=== PATIENT | female | born 1935 | race Caucasian/White ===

== ENCOUNTER 2021-11-14 01:38 | Emergency (ER) | payer OTHER ==
[2021-11-14] MEDS ORDERED: dexAMETHasone 10 MG/ML VIAL ONE (02:58)
[2021-11-14] MEDS ORDERED: KETOROLAC 30 MG/ML INJ ONE (02:59)
[2021-11-14] MEDS ORDERED: MEPERIDINE HCL 25 MG/ML SYR ONE ×2 (02:59→03:55)
--- NOTE | 2021-11-14 04:09 | EDPHYS ---
Physician Documentation [facility] Name: Tami Whitehead Age: 86 yrs Sex: Female : 1935 Arrival Date: 11/14/2021 Time: 01:41 Bed 14 Private MD: ED Physician Moisés Lassiter HPI: 11/14 02:26 This 86 yrs old Female presents to ER via Wheelchair with complaints of Arm Pain. rn 02:26 The patient or guardian complains of pain, that is acute. The complaints affect the rn anterior aspect of right shoulder. Onset: The symptoms/episode began/occurred last night. Treatment prior to arrival includes: over the counter medications. Modifying factors: The symptoms are alleviated by remaining still, the symptoms are aggravated by movement. Associated signs and symptoms: Pertinent negatives: fever, swelling, warmth, weakness. Severity of symptoms: At their worst the symptoms were moderate, in the emergency department the symptoms are unchanged. The patient has experienced similar episodes in the past. The patient has not recently seen a physician. Pt reports right shoulder pain, has had it for 1 year, intermittent, never got this bad. No injury or fall. Reports pain with elevation of arm and rotation of arm. No weakness/numbness. Also with hx of gout.. Historical: - Allergies: 02:08 Morphine; lp1 - Home Meds: 02:08 levothyroxine oral [Active]; Spironolacton-Hydrochlorothiaz Oral [Active]; carvedilol lp1 oral [Active]; pantoprazole oral [Active]; Plavix Oral [Active]; torsemide oral [Active]; Lisinopril Oral [Active]; Allopurinol Oral [Active]; atorvastatin oral [Active]; amlodipine oral [Active]; Aspirin Oral [Active]; - PMHx: 02:08 Hypertensive disorder; Hypothyroidism; Gout; lp1 - PSHx: 02:08 Pacemaker; Heart stents; lp1 - Immunization history:: Adult Immunizations up to date, Client reports receiving the 2nd dose of the Covid vaccine. - Social history:: Smoking status: Patient denies any tobacco usage or history of. - Family history:: not pertinent. - Hospitalizations: : No recent hospitalization is reported. ROS: 02:26 Constitutional: Negative for fever, chills, and weight loss, Eyes: Negative for injury, rn pain, redness, and discharge, Neck: Negative for injury, pain, and swelling, Cardiovascular: Negative for chest pain, palpitations, and edema, Respiratory: Negative for shortness of breath, cough, wheezing, and pleuritic chest pain, Abdomen/GI: Negative for abdominal pain, nausea, vomiting, diarrhea, and constipation, Back: Negative for injury and pain, MS/Extremity: Negative for injury and deformity, Skin: Negative for injury, rash, and discoloration, Neuro: Negative for headache, weakness, numbness, tingling, and seizure. Exam: 02:26 Constitutional: This is a well developed, well nourished patient who is awake, alert, rn appears in pain Head/Face: Normocephalic, atraumatic. Cardiovascular: Regular rate and rhythm. No pulse deficits. Respiratory: No increased work of breathing, no retractions or nasal flaring. Abdomen/GI: Soft, non-tender Skin: Warm, dry, no discoloration or warmth MS/ Extremity: Pulses equal, no cyanosis. Neurovascular intact. Painful rotation of right shoulder and with elevation past horizontal. NO pain with ROM of right elbow or flexion of bicep. Able to prop herself up using right elbow on bed without pain. Neuro: Awake and alert, GCS 15, oriented to person, place, time, and situation. Cranial nerves II-XII grossly intact. Motor strength 5/5 in all extremities. Sensory grossly intact. Cerebellar exam normal. Normal gait. Vital Signs: 01:59 BP 190 / 87; Pulse 71; Resp 18; Temp 98.1(TE); Pulse Ox 98% on R/A; Weight 65.77 kg lp1 (R); Height 5 ft. 3 in. (160.02 cm); Pain 10/10; 03:25 BP 119 / 70; Pulse 64; Resp 18; ke1 03:30 Pain 7/10; ke1 01:59 Body Mass Index 25.69 (65.77 kg, 160.02 cm) lp1 MDM: 01:43 Patient medically screened. rn 04:04 Differential diagnosis: tendonitis. Differential diagnosis: neuropathy. Data reviewed: rn vital signs, nurses notes. Counseling: I had a detailed discussion with the patient and/or guardian regarding: the historical points, exam findings, and any diagnostic results supporting the discharge/admit diagnosis, radiology results, the need for outpatient follow up, to return to the emergency department if symptoms worsen or persist or if there are any questions or concerns that arise at home. Response to treatment: the patient's symptoms have mildly improved after treatment, and as a result, I will discharge patient. Special discussion: I discussed with the patient/guardian in detail that at this point there is no indication for admission to the hospital. It is understood, however, that if the symptoms persist or worsen the patient needs to return immediately for re-evaluation. Based on the history and exam findings, there is no indication for further emergent testing or inpatient evaluation. I discussed with the patient/guardian the need to see the orthopedic surgeon for further evaluation of the symptoms. ED course: Xray supports rotator cuff pathology and degenerative joint, no trauma, no signs of infection, will dc home with ortho f/u, ice, sling, and rest. . 04:09 ED course: Warned patient and son regarding overuse of sling and frozen shoulder. rn 11/14 02:06 Order name: XRAY Shoulder RIGHT 2 view rn 11/14 02:06 Order name: IV Start; Complete Time: 02:48 rn 11/14 03:44 Order name: Sling; Complete Time: 04:24 rn Administered Medications: 02:08 CANCELLED (Duplicate Order): morphine 2 mg IVP once over 4 mins rn 02:58 Drug: Ketorolac 15 mg Route: IVP; Site: right wrist; ke1 03:30 Follow up: Response: Pain is unchanged, physician notified ke1 03:30 Follow up: Response: No adverse reaction ke1 02:58 Drug: Demerol (meperidine) 12.5 mg Route: IVP; Site: right wrist; ke1 03:30 Follow up: Pain 7/10 Adult; Response: Pain is unchanged, physician notified ke1 02:59 Drug: Decadron - Dexamethasone 10 mg Route: IVP; Site: right wrist; ke1 04:48 Follow up: Response: No adverse reaction ke1 03:50 Drug: Demerol (meperidine) 12.5 mg Route: IVP; Site: right wrist; ke1 04:48 Follow up: Response: Pain is decreased ke1 Disposition Summary: 11/14/21 04:09 Discharge Ordered Location: Home rn Problem: new rn Symptoms: have improved rn Condition: Stable rn Diagnosis - Rotator Cuff tendinitis, right shoulder rn - Osteoarthritis, unspecified site rn Followup: rn - With: Minesh Mon MD - When: As needed - Reason: Recheck today's complaints, Re-evaluation by your physician Discharge Instructions: - Discharge Summary Sheet rn - Osteoarthritis rn - Rotator Cuff Tendinitis rn - How to Use a Sling rn Forms: - Medication Reconciliation Form rn - Thank You Letter rn - Antibiotic rn house supervisor - Prescription Opioid Use rn Signatures: Dispatcher [employer] EDNJ Moisés Lassiter MD MD rn Pena, Laura RN RN lp1 Greg Mathias RN RN ke1 Corrections: (The following items were deleted from the chart) 02:08 02:06 morphine 2 mg IVP once over 4 mins ordered. rn rn 02:30 02:26 Constitutional: This is a well developed, well nourished patient who is awake, rn alert, appears in pain Head/Face: Normocephalic, atraumatic. Cardiovascular: Regular rate and rhythm. No pulse deficits. Respiratory: No increased work of breathing, no retractions or nasal flaring. Abdomen/GI: Soft, non-tender MS/ Extremity: Pulses equal, no cyanosis. Neurovascular intact. Painful rotation of right shoulder and with elevation past horizontal. NO pain with ROM of right elbow or flexion of bicep. Able to prop herself up using right elbow on bed without pain. Neuro: Awake and alert, GCS 15, oriented to person, place, time, and situation. Cranial nerves II-XII grossly intact. Motor strength 5/5 in all extremities. Sensory grossly intact. Cerebellar exam normal. Normal gait. rn
--- NOTE | 2021-11-14 04:09 | ER ---
Nurse's Notes [facility] Name: Tami Whitehead Age: 86 yrs Sex: Female : 1935 Arrival Date: 11/14/2021 Time: 01:41 Bed 14 Private MD: Diagnosis: Rotator Cuff tendinitis, right shoulder;Osteoarthritis, unspecified site Presentation: 11/14 01:59 Chief complaint: Patient states: Severe pain to right shoulder that began at 2230, lp1 denies any injury to site; States she previously had COVID booster to right arm. Coronavirus screen: At this time, the client does not indicate any symptoms associated with coronavirus-19. Ebola Screen: No symptoms or risks identified at this time. Initial Sepsis Screen: Does the patient meet any 2 criteria? No. Patient's initial sepsis screen is negative. Does the patient have a suspected source of infection? No. Patient's initial sepsis screen is negative. Risk Assessment: Do you want to hurt yourself or someone else? Patient reports no desire to harm self or others. 01:59 Acuity: YADIRA 3 lp1 01:59 Method Of Arrival: Wheelchair lp1 02:01 Onset of symptoms was November 13, 2021 at 22:30. lp1 Triage Assessment: 02:15 General: Appears uncomfortable, Behavior is appropriate for age. Pain: Complains of ke1 pain in anterior aspect of right shoulder Pain does not radiate. Pain currently is 7 out of 10 on a pain scale. Quality of pain is described as crampy. Neuro: Level of Consciousness is awake, alert, Oriented to person, place, time, situation. Respiratory: Airway is patent Respiratory effort is even, unlabored, Respiratory pattern is regular, symmetrical. Musculoskeletal: Range of motion: limited in right shoulder. Historical: - Allergies: 02:08 Morphine; lp1 - Home Meds: 02:08 levothyroxine oral [Active]; Spironolacton-Hydrochlorothiaz Oral [Active]; carvedilol lp1 oral [Active]; pantoprazole oral [Active]; Plavix Oral [Active]; torsemide oral [Active]; Lisinopril Oral [Active]; Allopurinol Oral [Active]; atorvastatin oral [Active]; amlodipine oral [Active]; Aspirin Oral [Active]; - PMHx: 02:08 Hypertensive disorder; Hypothyroidism; Gout; lp1 - PSHx: 02:08 Pacemaker; Heart stents; lp1 - Immunization history:: Adult Immunizations up to date, Client reports receiving the 2nd dose of the Covid vaccine. - Social history:: Smoking status: Patient denies any tobacco usage or history of. - Family history:: not pertinent. - Hospitalizations: : No recent hospitalization is reported. Screenin:24 Abuse screen: Denies threats or abuse. Nutritional screening: No deficits noted. ke1 Tuberculosis screening: No symptoms or risk factors identified. Fall Risk No fall in past 12 months (0 pts). No secondary diagnosis (0 pts). IV access (20 points). Ambulatory Aid- Gait- Normal/Bed Rest/Wheelchair (0 pts) Mental Status- Oriented to own ability (0 pts). Total Gu Fall Scale indicates No Risk (0-24 pts). Vital Signs: 01:59 BP 190 / 87; Pulse 71; Resp 18; Temp 98.1(TE); Pulse Ox 98% on R/A; Weight 65.77 kg lp1 (R); Height 5 ft. 3 in. (160.02 cm); Pain 10/10; 03:25 BP 119 / 70; Pulse 64; Resp 18; ke1 03:30 Pain 7/10; ke1 01:59 Body Mass Index 25.69 (65.77 kg, 160.02 cm) lp1 ED Course: 01:41 Patient arrived in ED. mr 01:43 Moisés Lassiter MD is Attending Physician. rn 02:01 Triage completed. lp1 02:12 Arm band placed on left wrist. lp1 02:21 Greg Mathias, CALE is Primary Nurse. ke1 02:24 XRAY Shoulder RIGHT 2 view In Process Unspecified. EDMS 02:48 Inserted saline lock: 22 gauge in right wrist, using aseptic technique. ke1 03:25 Bed in low position. Call light in reach. Side rails up X 1. Side rails up X2. ke1 04:06 Minesh Mon MD is Referral Physician. rn 04:47 No provider procedures requiring assistance completed. IV discontinued. ke1 Administered Medications: 02:08 CANCELLED (Duplicate Order): morphine 2 mg IVP once over 4 mins rn 02:58 Drug: Ketorolac 15 mg Route: IVP; Site: right wrist; ke1 03:30 Follow up: Response: Pain is unchanged, physician notified ke1 03:30 Follow up: Response: No adverse reaction ke1 02:58 Drug: Demerol (meperidine) 12.5 mg Route: IVP; Site: right wrist; ke1 03:30 Follow up: Pain 7/10 Adult; Response: Pain is unchanged, physician notified ke1 02:59 Drug: Decadron - Dexamethasone 10 mg Route: IVP; Site: right wrist; ke1 04:48 Follow up: Response: No adverse reaction ke1 03:50 Drug: Demerol (meperidine) 12.5 mg Route: IVP; Site: right wrist; ke1 04:48 Follow up: Response: Pain is decreased ke1 Medication: 02:12 VIS not applicable for this client. lp1 Outcome: 04:09 Discharge ordered by . rn 04:48 Discharged to home via wheelchair. ke1 04:48 Condition: stable 04:48 Discharge instructions given to patient, family. 04:49 Patient left the ED. ke1 Signatures: Dispatcher [employer] RADHA DennyLeia mr LassiterMoisés MD MD rn Pena, Laura, RN RN lp1 Greg Mathias RN RN ke1 Corrections: (The following items were deleted from the chart) 02:12 01:59 BP 190 / 87; Pulse 71bpm; Resp 18bpm; Pulse Ox 98% RA; Temp 98.1F Temporal; Pain lp1 1010; lp1
[2021-11-14 04:59] VITALS: TEMP 98.1; O2SAT 98
[2021-11-14 05:01] VITALS: BP 119/70
--- NOTE | 2021-11-14 14:18 | RAD REPORT ---
EXAM DESCRIPTION: Shoulder Right 2 View - 11/14/2021 2:20 am CLINICAL HISTORY: 86 years Female PAIN Shoulder Right 2 View TECHNIQUE: 2 x-ray views of the right shoulder were performed on 11/14/2021 at 2:15 AM. COMPARISON: None FINDINGS: There is no evidence of acute fracture or dislocation. There is narrowing of the glenohume ral joint with degenerative changes along the superior aspect of the right humeral head. There is pina rowing of the subacromial space consistent with underlying rotator cuff pathology. There are mild to moderate degenerative changes of the acromioclavicular joint. No pathologic lytic or sclerotic bone l esions are identified. Bone mineralization is grossly within normal limits. No acute soft tissue abnormalities are identified. The visualized portions of the right hemithorax ar e unremarkable. There are partially imaged pacemaker leads. IMPRESSION: 1. No evidence of acute osseous injury involving the right shoulder. 2. Degenerative changes of the right shoulder with narrowing of the subacromial space consistent wi th underlying rotator cuff pathology. Electronically signed by: Lorna Domínguez DO 11/14/2021 3:53 AM CDT Due to temporary technical issues with the PACS/Fluency reporting system, reports are being signed by the in house radiologist without review as a courtesy to ensure prompt reporting. The interpreting r adiologist is fully responsible for the content of the report.
== END 2021-11-14 04:49 | disposition home or self-care (01) ==
LOC: ER 01:38
DX: M75.101 Unspecified rotator cuff tear or rupture of right shoulder, not specified as traumatic (principal); M19.90 Unspecified osteoarthritis, unspecified site; E03.9 Hypothyroidism, unspecified; I10 Essential (primary) hypertension; Z95.0 Presence of cardiac pacemaker; Z95.818 Presence of other cardiac implants and grafts; Z88.5 Allergy status to narcotic agent
CPT/HCPCS: 73030; J1100; J2175 ×2

== ENCOUNTER 2022-05-08 23:24 | Emergency (ER) | payer OTHER, MEDICARE ==
--- OUTSIDE RECORDS SUMMARY | 2022-05-08 23:27 | XMS REPORT | Continuity of Care Document ---
:1935 Author Organization [facility] t Address [address] [place] [address] Support Name Relationship Address Phone SUSIE WHITEHEAD Unavailable ALPESH WHITEHEAD Relative [address] [place] [address] GALINA WHITEHEAD Relative [address] [place] [address] JARRED SHIELDS MD Emergency Provider [address] [facility] [address] [place] [address] PEPITO MCKEON MD Primary Care Physician [address] [facility] [address] [place] [address] ALPESH WHITEHEAD Next of Kin [address] [place] [address] MD SAE ZIMMERMAN Emergency Provider [address] [place] [id number] MD HERMINIA PEDRO Emergency Provider [address] [phone] [place] [id number] L Farnaz Whitehead Self Unavailable [phone] Care Team Providers Name Role Phone Pallavi Beyer MD Primary Care Physician NIKOLAS TRUJILLO Attending Clinician Unavailable Donato Montemayor MD Attending Clinician SHARIF Attending Clinician Unavailable Lilia Attending Clinician Unavailable PALLAVI BEYER Attending Clinician Unavailable SHARIF Admitting Clinician Unavailable Lilia Admitting Clinician Unavailable PALLAVI BEYER Admitting Clinician Unavailable Payers Payer Name Policy Type Policy Number Effective Date Expiration Date S anjali MEDICARE PART A AND [id number] 2002 B 00:00:00 [place]IC[place] B-[place]: [id number] 2002 [employer] 00:00:00 [facility] [id number] 2018 OPTIONS (MEDICARE 00:00:00 SUPPLEMENT) MEDICARE A-[place]: [id number] 2002 [employer] - 00:00:00 RHC - FQHC Problems Condition Condition Condition Status Onset Resolution Last Treating Co mments Source Name Details Category Date Date Treatment Clinician Date Acute Acute Problem Active [facility] bronchitis Bronchitis 09-13 da 00:00: Medical 00 Group History of History of Disease Active M ethodi cardiovasc cardiovasc 11-06 ular ular 00:00: Hospita surgery surgery 00 l Pacemaker Pacemaker Disease Active [facility] 11-06 00:00: Hospita 00 l CHF CHF Disease Active [facility] (congestiv (congestiv 11-06 st e heart e heart 00:00: Hospita failure) failure) 00 l History of History of Disease Active M ethodi NV NV 11-06 st (myocardia (myocardia 00:00: Ho spita l l 00 l infarction infarction ) ) HTN HTN Disease Active [facility] (hypertens (hypertens 11-06 st ion) ion) 00:00: Hospita 00 l Gastric Gastric Disease Active [facility] ulcer ulcer 11-06 00:00: Hospita 00 l Diverticul Diverticul Disease Active M ethodi itis itis 11-06 00:00: Hospita 00 l Other Other Disease Active Overview: Method i specified specified 11-06 Formattin s t prophylact prophylact 00:00: g of this Hospita ic or ic or 00 note l treatment treatment might be measure measure different from the original. Orthovisc injection s Bilateral Bilateral Disease Active Met hodi knee pain knee pain 11-06 00:00: Hospita 00 l Allergies, Adverse Reactions, Alerts Allergy Allergy Status Severity Reaction(s) Onset Inactive Treating Comm ents Source Name Type Date Date Clinician No Known Propensi Active Method i Drug ty to 6-29 st Allergie adverse 00:00: Hospita s reaction 00 l s to drug Morphine Allergy Active [facility] Family History Family Member Diagnosis Comments Start Date Stop Date Source Natural father No Known Problems Met [facility] Natural mother No Known Problems Met [facility] Social History Social Habit Start Date Stop Date Quantity Comments Source Alcohol intake 2021-09-12 2021-09-12 Current [facility] 00:00:00 00:00:00 non-drinker of Hospital alcohol (finding) Tobacco use and 2018-08-24 2018-08-24 Smokeless tobacco [facility] exposure 00:00:00 00:00:00 non-user Hospital Sex Ass[birth year] At [birth year] [facility] 00:00:00 00:00:00 Hospital Smoking Status Start Date Stop Date Source Tobacco smoking consumption unknown [facility] Never smoked tobacco [facility] Medications Ordered Filled Start Stop Current Ordering Indication Dosage Frequency Signature Comments Components Source Medication Medication Date Date Medication? Clinician (SIG) Name Name torsemide Yes 10mg QD Take 10 mg [facility] (DEMADEX) 4-[address] 10 MG 13:05: daily. Hospita tablet 03 l carvedilol Yes 6.25mg Q.5D Take 6.25 Method[facility] (COREG) 4-[address] 6.25 MG 13:05: mouth 2 Hospita tablet 03 (two) l times a day with meals. allopurinol Yes 100mg QD Take 100 M ethodi (ZYLOPRIM) 4-[address] 100 MG 13:05: mouth Hospita tablet 03 daily. l atorvastati Yes 80mg QD Take 80 mg Methodi n (LIPITOR) 4-[address] 80 MG 13:05: daily. Hospita tablet 03 l aspirin Yes 81mg QD Take 81 mg Meth barbara (ECOTRIN) 4-[address] 81 MG 13:05: daily. Hospita enteric 03 l coated tablet levothyroxi Yes 100ug QD Take 100 M ethodi ne 4-[address] (SYNTHROID, 13:05: mouth Hospi ta LEVOXYL) 03 daily. l 100 mcg tablet travoprost Yes 1[drp] QD 1 drop Met [facility] (TRAVATAN-Z 4-[address] ) 0.004 % 13:05: Hospita 03 l calcium 2019- Yes 1{tbl} Q.5D Take 1 Method i carbonate-v 4-[address] itamin D3 13:05: mouth 2 Hospi ta 500 mg-200 03 (two) l unit per times a tablet day with meals. pantoprazol Yes 40mg QD Take 40 mg Methodi e 4-[address] (PROTONIX) 13:05: daily. Hospi ta 40 MG EC 03 l tablet DOCOSAHEXAN Yes Take by Met hodi OIC 4-[address] ACID/EPA 13:05: Hospita (FISH OIL 03 l ORAL) CINNAMON Yes Take by Method i BARK 4-[address] (CINNAMON 13:05: Hospita ORAL) 03 l CYANOCOBALA Yes Take by Met [facility] MIN, -[address] VITAMIN 13:05: Hospita B-12, 03 l (VITAMIN B-12 ORAL) ferrous Yes 325mg QD Take 325 Metho di sulfate 325 4-[address] (65 FE) MG 13:05: mouth Hospit a tablet 03 daily with l breakfast. melatonin 3 Yes Take by Met [facility] mg tablet -[address] 13:05: Hospita 03 l lidocaine 2018- Yes 1{patch Q24H Place 1 Me thodi (LIDODERM) 4-16 } patch on st 5 % 13:05: the skin Hospita 03 daily. l Remove & Discard patch within 12 hours or as directed by MD escalona Yes 500mg Q6H Take 500 M ethodi en 4-[address] (TYLENOL) 13:05: mouth Hospita 500 MG 03 every 6 l tablet (six) hours as needed for mild pain. clopidogrel Yes 75mg QD Take 75 mg Method[facility] (PLAVIX) 75 2-[address] mg tablet 14:35: daily. Hospit a 39 l lisinopril Yes 5mg QD Take 5 mg Me th[facility] (PRINIVIL,Z 2-[address] ESTRIL) 5 14:35: daily. Hospit a mg tablet 39 l Adult Low Adult Low No Adult Low [facility] Dose Dose Dose da Aspirin 81 Aspirin 81 Aspirin 81 Medical mg mg mg Group albuterol albuterol No 3mL Q4H albuterol [facility] sulfate 2.5 sulfate 2.5 sulfate da mg/3 mL mg/3 mL 2.5 mg/3 Medic al (0.083 %) (0.083 %) mL (0.083 Group solution solution %) for for solution nebulizatio nebulizatio for n Inhale 3 n Inhale 3 nebulizati mL every 4 mL every 4 on Inhale hours by hours by 3 mL every nebulizatio nebulizatio 4 hours by n route for n route for nebulizati 10 days. 10 days. on route for 10 days. albuterol albuterol No 2puff(s Q4H albuterol [facility] sulfate HFA sulfate HFA ) sulfate da 90 90 HFA 90 Medical mcg/actuati mcg/actuati mcg/actuat Group on aerosol on aerosol ion inhaler inhaler aerosol Inhale 2 Inhale 2 inhaler puffs every puffs every Inhale 2 4 hours by 4 hours by puffs inhalation inhalation every 4 route. route. hours by inhalation route. allopurinol allopurinol No 1 Q1D allopurino [facility] 100 mg 100 mg l 100 mg da tablet Take tablet Take tablet Medical 1 tablet 1 tablet Take 1 Group every day every day tablet by oral by oral every day route. route. by oral route. amiodarone amiodarone No 1 BID amiodarone [facility] 100 mg 100 mg 100 mg da tablet Take tablet Take tablet Medical 1 tablet 1 tablet Take 1 Group twice a day twice a day tablet by oral by oral twice a route. route. day by oral route. amoxicillin amoxicillin No 1 Q12H amoxicilli [facility] [phone] n 875 da mg-potassiu mg-potassiu mg-potassi Medical [facility] Group clavulanate clavulanate clavulanat 125 mg 125 mg e 125 mg tablet Take tablet Take tablet 1 tablet 1 tablet Take 1 every 12 every 12 tablet hours by hours by every 12 oral route oral route hours by for 3 days. for 3 days. oral route for 3 days. atorvastati atorvastati No 1 Q1D atorvastat [facility] n 40 mg n 40 mg in 40 mg da tablet Take tablet Take tablet Medical 1 tablet 1 tablet Take 1 Group every day every day tablet by oral by oral every day route. route. by oral route. Calcium Calcium No Calcium [facility] with with with da Vitamin D Vitamin D Vitamin D Medical 600mg/ 600mg/ 600mg/ Group 1500mg 1500mg 1500mg carvedilol carvedilol No 1 BID carvedilol [facility] 12.5 mg 12.5 mg 12.5 mg da tablet Take tablet Take tablet Medical 1 tablet 1 tablet Take 1 Group twice a day twice a day tablet by oral by oral twice a route. route. day by oral route. clopidogrel clopidogrel No 1 Q1D clopidogre [facility] 75 mg 75 mg l 75 mg da tablet Take tablet Take tablet Medical 1 tablet 1 tablet Take 1 Group every day every day tablet by oral by oral every day route. route. by oral route. ipratropium ipratropium No 3mL Q4H ipratropiu [facility] 0.5 0.5 m 0.5 da mg-albutero mg-albutero mg-albuter Medical l 3 mg (2.5 l 3 mg (2.5 ol 3 mg Group mg base)/3 mg base)/3 (2.5 mg mL mL base)/3 mL nebulizatio nebulizatio nebulizati n soln n soln on soln Inhale 3 mL Inhale 3 mL Inhale 3 every 4 every 4 mL every 4 hours by hours by hours by nebulizatio nebulizatio nebulizati n route as n route as on route needed. needed. as needed. levothyroxi levothyroxi No 1 Q1D levothyrox [facility] ne 100 mcg ne 100 mcg ine 100 da tablet Take tablet Take mcg tablet Medical 1 tablet 1 tablet Take 1 Group every day every day tablet by oral by oral every day route. route. by oral route. lisinopril lisinopril No 1 Q1D lisinopril [facility] 10 mg 10 mg 10 mg da tablet Take tablet Take tablet Medical 1 tablet 1 tablet Take 1 Group every day every day tablet by oral by oral every day route. route. by oral route. pantoprazol pantoprazol No 1 Q1D pantoprazo [facility] e 40 mg e 40 mg le 40 mg da tablet,ino tablet,ino tablet,del Medical yed release yed release ayed G roup Take 1 Take 1 release tablet tablet Take 1 every day every day tablet by oral by oral every day route. route. by oral route. torsemide torsemide No 1 Q1D torsemide [facility] 10 mg 10 mg 10 mg da tablet Take tablet Take tablet Medical 1 tablet 1 tablet Take 1 Group every day every day tablet by oral by oral every day route. route. by oral route. Travatan Z Travatan Z No Travatan Z [facility] 0.004 % eye 0.004 % eye 0.004 % da drops drops eye drops Medical INSTILL 1 INSTILL 1 INSTILL 1 Group DROP INTO DROP INTO DROP INTO AFFECTED AFFECTED AFFECTED EYE(S) BY EYE(S) BY EYE(S) BY OPHTHALMIC OPHTHALMIC OPHTHALMIC ROUTE ONCE ROUTE ONCE ROUTE ONCE DAILY INTHE DAILY INTHE DAILY EVENING EVENING INTHE EVENING Immunizations Ordered Immunization Filled Immunization Date Status Commen ts Source Name Name COVID-19 COVID-19 2020-06-30 Completed [place] (SARS-COV-2) (SARS-COV-2) 00:00:00 Medical Gr oup vaccine, unspecified vaccine, unspecified Vital Signs Vital Name Observation Time Observation Value Comments Source BP Diastolic 2021-05-14 00:00:00 75 mm[Hg] [facility] BP Systolic 2021-05-14 00:00:00 150 mm[Hg] [facility] Body Weight 2021-05-14 00:00:00 2364.8 [oz_av] [facility] BP Diastolic 2021-05-10 00:00:00 81 mm[Hg] [facility] BP Systolic 2021-05-10 00:00:00 161 mm[Hg] [facility] Body Weight 2021-05-10 00:00:00 2496 [oz_av] [facility] BP Diastolic 2020 00:00:00 72 mm[Hg] [facility] BP Systolic 2020 00:00:00 124 mm[Hg] [facility] Body Weight 2020 00:00:00 2403 [oz_av] [facility] Body height 2021-09-12 14:57:00 170.2 cm [facility] Body weight 2021-09-12 14:57:00 67.132 kg [facility] BMI 2021-09-12 14:57:00 23.18 kg/m2 [facility] Procedures Procedure Date / Time Performing Clinician Source Performed [place] ARTHROCENTESIS 2021-09-12 15:10:00 oDnato Montemayor [facility] ASPIR&/INJ MAJOR JT/BURSA W/O US [place] ARTHROCENTESIS 2021-09-02 14:50:00 Donato Montemayor [facility] ASPIR&/INJ MAJOR JT/BURSA W/O US [place] ARTHROCENTESIS 2021-08-26 14:30:00 Donato Montemayor [facility] ASPIR&/INJ MAJOR JT/BURSA W/O US XR, chest, 2 view 2021-05-10 00:00:00 [facility] Operation on Heart [facility] Plan of Care Planned Activity Planned Date Details Comments Source Future Scheduled Test 2022-05-08 65+ PNEUMOCOCCAL [facility] 23:26:58 VACCINE (1 - PCV) [code = 65+ PNEUMOCOCCAL VACCINE (1 - PCV)] Future Scheduled Test 2022-05-08 SHINGLES VACCINES (1 [facility] 23:26:58 of 2) [code = SHINGLES VACCINES (1 of 2)] Future Scheduled Test 2022-05-08 COVID-19 VACCINE (4 - [facility] 23:26:58 Booster) [code = COVID-19 VACCINE (4 - Booster)] Future Scheduled Test 2022-05-08 INFLUENZA VACCINE [facility] 23:26:58 [code = INFLUENZA VACCINE] Instructions [facility] Encounters Start End Encounter Admission Attending Care Care Encounter Source Date/Time Date/Time Type Type Clinicians Facility Department ID 2021-11-01 Outpatient [facility] [id number] [place] 11:42:14 [id number] Health 2021-09-30 Outpatient [facility] [id number] [place] 10:13:23 [id number] [facility] 2021-08-08 Outpatient [facility] [id number] [place] 15:15:57 [id number] Health 2021-09-30 2021-09-30 Outpatient CASSANDRA, [facility] CAR 7532 [facility] 10:13:00 23:59:00 NIKOLAS 2021-09-12 2021-09-12 Clinical Sim, 1.2.840.1 [id number] [facility]i 10:10:00 10:47:26 Support Donato Muñoz [id number] 3.430.2.7 Hospit a .3.078190 l .8 2021-09-12 2021-09-12 [facility] [id number] [place] 00:00:00 00:00:00 DONATO [address] 2021-09-02 2021-09-02 Clinical Sim, 1.2.840.1 [id number] [facility] 09:50:00 10:19:14 Support Donato Muñoz 81314.1.[address] 3.430.2.7 Hospit a .3.821135 l .8 2021-09-02 2021-09-02 [facility] [id number] [place] 00:00:00 00:00:00 DONATO [address] 2021-08-28 2021-08-28 Outpatient [facility] [id number] [facility] 05:40:00 05:40:00 [id number] [facility] 2021-08-26 2021-08-26 Office Sim, 1.2.840.1 [id number] [facility] 09:30:00 09:47:53 Visit Donato Muñoz 66920.1.[address] 3.430.2.7 Hospit a .3.645951 l .8 2021-08-26 2021-08-26 [facility] [id number] [place] 00:00:00 00:00:00 DONATO [address] 2021-07-31 2021-07-31 Travel 1.2.840.1 [id number] [facility] 00:00:00 00:00:[address] 3.430.2.7 0.2.7.3.698 Ho spita .3.872657 084.8 l .8 2021-07-012021-07-01 Outpatient CASSANDRA, [facility] CAR 7531 [facility] 09:08:00 23:59:00 NIKOLAS 2021-05-17 2021-05-17 Outpatient Hawkins_M [facility] MMG [id number] [place] 04:08:00 04:08:00 0107 [facility] 2021-05-17 2021-05-17 Outpatient Hawkins_M MMG MMG [id number] [facility] 00:00:00 00:00:00 1229 [facility] 2021-05-14 2021-05-14 Stephanie Mikey_M MMG [place] - [id number] [facility] 00:00:00 00:00:00 Kenzie Spencer 0104 verenice [facility] Medical HAZMAT CDL DRIVER: [address] [facility] [address], [place] [address] , Ph. 2021-05-10 2021-05-10 Stephanie Jensen_M MMG [place] - [id number] 21 [place] 00:00:00 00:00:00 Kenzie Spencer 1231 [address] [facility] Medical Medical HAZMAT CDL DRIVER: [address] [facility] [address], [place] [address] , Ph. 2021-04-15 2021-04-15 EXT IRA [facility] OP EXT MSRDP [id number] [place] 00:00:00 00:00:00 LOCATION 350.1.13.58 H ealth 9.2.7.2.686 [id number] 2021-04-15 2021-04-15 EXT IRA [facility] OP EXT MSRDP 1.2.840.114 1 [id number] [place] 00:00:00 00:00:00 LOCATION 350.1.13.58 H ealth 9.2.7.2.686 [id number] 2021-02-21 2021-02-21 [facility]patient [facility] [id number] [place] 00:00:00 00:00:[address] 2021-02-11 2021-02-11 [facility]patient [facility] [id number] [place] 00:00:00 00:00:00 RIPPEY 787 Meth[address] di 2021-02-04 2021-02-04 Outpatient SIM [facility] [id number] [place] 00:00:00 00:00:00 DONATO [address] 2020-09-15 2020-09-15 Outpatient Mikey_Carlin MM[facility] [id number] -[id number] [place] 12:25:00 12:25:00 0508 Medical Group 2020 2020 Stephanie Jensen_Carlin MMG [place] - [id number] 21 [place] 00:00:00 00:00:00 [employer] ([employer]) 0430 [facility] [address] [facility] [address], [place] [address] , Ph. 2020-07-23 2020-07-23 Outpatient CASSANDRA, [facility] CAR 7530 [facility] 09:42:00 23:59:00 [facility] 2020-05-01 2020-05-01 Outpatient CASSANDRA, [facility] CAR 7529 [facility] 10:35:00 23:59:00 [facility] 2020-03-09 2020-03-11 Inpatient Shanti [facility] 7528 [facility] 16:40:00 11:00:00 PALLAVI tierney 2020-02-21 2020-02-21 Outpatient CASSANDRA, [facility] CAR 7527 [facility] 09:11:00 23:59:00 [facility] 2019-05-30 2019-05-30 Outpatient [facility] CAR 7525 [facility] 09:38:00 09:38:00 2019-05-24 2019-05-24 Outpatient [facility] 7524 Memoria 06:43:00 06:43:00 kelsy tierney 2018-12-28 2018-12-28 Outpatient [facility] CAR 7523 [facility] 09:46:00 09:46:00 2018-08-31 2018-08-31 Outpatient [facility] CAR 7522 [facility] 10:56:00 10:56:00 Results Test Description Test Time Test Comments Results Result Comments Source rapid influenza virus A + B and SARS CoV + SARS CoV 2 Ag panel, 2021-05-10 09:30:24 [place], upper respiratory specimen Test Item Value Reference Range Interpretation Comme nts RAPID SARS COV (test code = RAPID SARS COV) negative RAPID FLU A (test code = RAPID FLU A) negative RAPID FLU B (test code = RAPID FLU B) [facility] B and SARS CoV + SARS CoV 2 Ag panel, [place], upper respiratory [id number] 09:30:24 Test Item Value Reference Range Interpretation Comments RAPID SARS COV (test code = RAPID negative SARS COV) RAPID FLU A (test code = RAPID FLU negative A) RAPID FLU B (test code = RAPID FLU negative B[facility] Ag [Presence] in Respiratory specimen by Rapid [id number] 10:18:58 Test Item Value Reference Range Interpretation Comments SARS-CoV - 2 (test code = SARS-CoV - negative 2) [facility]
[2022-05-09] MEDS ORDERED: IBUPROFEN 400 MG TAB ONE (00:20)
--- NOTE | 2022-05-09 01:14 | ER ---
Nurse's Notes [facility] Name: Tami Whitehead Age: 86 yrs Sex: Female : 1935 Arrival Date: 05/08/2022 Time: 23:30 Bed 14 Private MD: Diagnosis: Pain in right leg Presentation: 05/08 23:53 Chief complaint: Patient states: C/o right groin pain that radiates down leg since ll3 about 5 PM. Coronavirus screen: Vaccine status: Patient reports receiving the 2nd dose of the covid vaccine. At this time, the client does not indicate any symptoms associated with coronavirus-19. Ebola Screen: No symptoms or risks identified at this time. Initial Sepsis Screen: Does the patient meet any 2 criteria? No. Patient's initial sepsis screen is negative. Does the patient have a suspected source of infection? No. Patient's initial sepsis screen is negative. Risk Assessment: Do you want to hurt yourself or someone else? Patient reports no desire to harm self or others. Onset of symptoms was May 08, 2022 at 17:00. 23:53 Method Of Arrival: Wheelchair ll3 23:53 Acuity: YADIRA 3 ll3 23:53 Care prior to arrival: Medication(s) given: Tylenol, \T\1750. ll3 Historical: - Allergies: 23:59 Morphine; ll3 23:59 metformin; ll3 - PMHx: 23:59 Gout; Hypertensive disorder; Hypothyroidism; Hypercholesterolemia; ll3 - PSHx: 23:59 Heart Stents; pacemaker; ll3 - Immunization history:: Client reports receiving the 2nd dose of the Covid vaccine. - Social history:: Smoking status: Patient denies any tobacco usage or history of. Screenin/30 00:00 [facility] ED Fall Risk Assessment (Adult) History of falling in the last 3 months, jb4 including since admission No falls in past 3 months (0 pts) Confusion or Disorientation No (0 pts) Intoxicated or Sedated No (0 pts) Impaired Gait Yes (1 pt) Mobility Assist Device Used Yes (1 pt) Altered Elimination No (0 pt) Score/Fall Risk Level 0 - 2 = Low Risk Oriented to surroundings, Maintained a safe environment. Abuse screen: Denies threats or abuse. Nutritional screening: No deficits noted. Tuberculosis screening: No symptoms or risk factors identified. Assessment: 00:10 General: Appears in no apparent distress. uncomfortable, Behavior is calm, cooperative, jb4 appropriate for age. Pain: Complains of pain in right leg Pain does not radiate. Pain currently is 0 out of 10 on a pain scale. at worst was 10 out of 10 on a pain scale. Neuro: Level of Consciousness is awake, alert, obeys commands, Oriented to person, place, time, situation. Cardiovascular: Patient's skin is warm and dry. Respiratory: Airway is patent Respiratory effort is even, unlabored, Respiratory pattern is regular, symmetrical. GI: No signs and/or symptoms were reported involving the gastrointestinal system. : No signs and/or symptoms were reported regarding the genitourinary system. EENT: No signs and/or symptoms were reported regarding the EENT system. Derm: Skin is intact, Skin is pink, warm \T\ dry. Musculoskeletal: Circulation, motion, and sensation intact. Range of motion: intact in all extremities. 01:58 Reassessment: Patient appears in no apparent distress at this time. Patient and/or jb4 family updated on plan of care and expected duration. Pain level reassessed. Patient is alert, oriented x 3, equal unlabored respirations, skin warm/dry/pink. D/c pending shot time. Vital Signs: 05/08 23:53 BP 120 / 55; Pulse 60; Resp 17; Temp 98.1(O); Pulse Ox 95% on R/A; Weight 63.5 kg (R); ll3 Height 5 ft. 7 in. (170.18 cm) (R); Pain 0/10; 05/09 02:04 BP 148 / 64; Pulse 59; Resp 18; Pulse Ox 94% on R/A; jb4 05/08 23:53 Body Mass Index 21.93 (63.50 kg, 170.18 cm) ll3 ED Course: 05/08 23:30 Patient arrived in ED. es 23:50 Alexis Richmond MD is Attending Physician. sp3 23:58 Triage completed. ll3 23:59 Arm band placed on Patient placed in an exam room, on a stretcher, on pulse oximetry. ll3 05/09 00:13 Galindo Arrieta, CALE is Primary Nurse. jb4 00:36 Hip Right 1 View XRAY In Process Unspecified. EDMS 00:36 Pelvis XRAY In Process Unspecified. EDMS 00:51 US Extremity Venous Unilateral Ltd In Process Unspecified. EDMS 02:08 No provider procedures requiring assistance completed. Patient did not have IV access jb4 during this emergency room visit. Administered Medications: 00:21 Drug: Motrin (ibuprofen) 800 mg Route: PO; jb4 02:09 Follow up: Response: No adverse reaction; Marked relief of symptoms; Pain is decreased jb4 01:51 Drug: Ketorolac 15 mg Route: IM; Site: right gluteus; jb4 02:09 Follow up: Response: No adverse reaction; Marked relief of symptoms; Pain is decreased jb4 Outcome: 01:14 Discharge ordered by . sp3 02:08 Discharged to home via wheelchair, with family. jb4 02:08 Condition: stable 02:08 Discharge instructions given to patient, family, Instructed on discharge instructions, follow up and referral plans. Demonstrated understanding of instructions, follow-up care. 02:09 Patient left the ED. jb4 Signatures: Dispatcher [employer] Tia Diaz James, RN RN jb4 Alexis Richmond MD MD sp3 Teena Torres RN RN ll3
--- NOTE | 2022-05-09 01:14 | EDPHYS ---
Physician Documentation [facility] Name: Tami Whitehead Age: 86 yrs Sex: Female : 1935 Arrival Date: 05/08/2022 Time: 23:30 Bed 14 Private MD: ED Physician Alexis Richmond HPI: 05/09 00:20 This 86 yrs old Female presents to ER via Wheelchair with complaints of Leg Pain. sp3 00:20 86-year-old female with history of hypertension, hyperlipidemia, hypothyroidism sp3 presents with right hip pain extending into the right lower extremity following a venous system. Patient states that she was doing a crossword puzzle and stayed on that side for approximately 1 to 2 hours "aggravating it". She denies any direct trauma, fall, prolonged periods of mobilization longer than we will just mention, travel history, long car ride or airplane ride, known sick contacts or any other historical factors. Review of systems negative for headache, neck pain, chest pain, shortness of breath, Arya pain, nausea, vomiting, diarrhea, rash, numbness or tingling, focal neurodeficit, or any other symptoms at this time.. Historical: - Allergies: 05/08 23:59 Morphine; ll3 23:59 metformin; ll3 - PMHx: 23:59 Gout; Hypertensive disorder; Hypothyroidism; Hypercholesterolemia; ll3 - PSHx: 23:59 Heart Stents; pacemaker; ll3 - Immunization history:: Client reports receiving the 2nd dose of the Covid vaccine. - Social history:: Smoking status: Patient denies any tobacco usage or history of. ROS: 05/09 00:22 Constitutional: Negative for fever, chills, and weight loss, Eyes: Negative for injury, sp3 pain, redness, and discharge, Neck: Negative for injury, pain, and swelling, Cardiovascular: Negative for chest pain, palpitations, and edema, Respiratory: Negative for shortness of breath, cough, wheezing, and pleuritic chest pain, Abdomen/GI: Negative for abdominal pain, nausea, vomiting, diarrhea, and constipation, Back: Negative for injury and pain, Skin: Negative for injury, rash, and discoloration, Neuro: Negative for headache, weakness, numbness, tingling, and seizure, Psych: Negative for depression, anxiety, suicide ideation, homicidal ideation, and hallucinations, Allergy/Immunology: Negative for hives, rash, and allergies, Endocrine: Negative for neck swelling, polydipsia, polyuria, polyphagia, and marked weight changes. All other systems are negative. Exam: 00:22 Constitutional: This is a well developed, well nourished patient who is awake, alert, sp3 and in no acute distress. Head/Face: Normocephalic, atraumatic. Neck: Trachea midline, no thyromegaly or masses palpated, and no cervical lymphadenopathy. Supple, full range of motion without nuchal rigidity, or vertebral point tenderness. No Meningismus. Chest/axilla: Normal chest wall appearance and motion. Nontender with no deformity. No lesions are appreciated. Cardiovascular: Regular rate and rhythm with a normal S1 and S2. No gallops, murmurs, or rubs. Normal PMI, no JVD. No pulse deficits. Respiratory: Lungs have equal breath sounds bilaterally, clear to auscultation and percussion. No rales, rhonchi or wheezes noted. No increased work of breathing, no retractions or nasal flaring. Skin: Warm, dry with normal turgor. Normal color with no rashes, no lesions, and no evidence of cellulitis. Neuro: Awake and alert, GCS 15, oriented to person, place, time, and situation. Cranial nerves II-XII grossly intact. Motor strength 5/5 in all extremities. Sensory grossly intact. Cerebellar exam normal. Normal gait. Psych: Awake, alert, with orientation to person, place and time. Behavior, mood, and affect are within normal limits. 00:22 Musculoskeletal/extremity: No muscular pain in the anterior thigh and medial thigh extending distally into the knee area. No calf tenderness. Distal neurovascular exam is normal.. Vital Signs: 05/08 23:53 BP 120 / 55; Pulse 60; Resp 17; Temp 98.1(O); Pulse Ox 95% on R/A; Weight 63.5 kg (R); ll3 Height 5 ft. 7 in. (170.18 cm) (R); Pain 0/10; 05/09 02:04 BP 148 / 64; Pulse 59; Resp 18; Pulse Ox 94% on R/A; jb4 05/08 23:53 Body Mass Index 21.93 (63.50 kg, 170.18 cm) ll3 MDM: 00:11 Patient medically screened. sp3 00:23 Data reviewed: vital signs, nurses notes. ED course: 86-year-old female with multiple sp3 medical problems presents with right leg pain. Will obtain ultrasound to rule out DVT and x-rays rule out any occult fracture. I am not highly suspicious for fracture, vascular compromise, arterial occlusion, any other symptoms. Differential diagnosis includes DVT, fracture, sciatica, MSK injury/symptoms. If work-up is negative will discharge patient home. P.o. Motrin for pain control.. 01:13 ED course: Demonstrates no DVT or other vascular abnormality. X-rays reviewed by ms sp3 also demonstrate no fracture. We will discharge patient home with MSK pain and OTC anti-inflammatories and general supportive care. Follow-up with PCP as needed.. 05/09 00:13 Order name: US Extremity Venous Unilateral Ltd sp3 05/09 00:13 Order name: Hip Right 1 View XRAY sp3 05/09 00:13 Order name: Pelvis XRAY sp3 Administered Medications: 00:21 Drug: Motrin (ibuprofen) 800 mg Route: PO; jb4 02:09 Follow up: Response: No adverse reaction; Marked relief of symptoms; Pain is decreased jb4 01:51 Drug: Ketorolac 15 mg Route: IM; Site: right gluteus; jb4 02:09 Follow up: Response: No adverse reaction; Marked relief of symptoms; Pain is decreased jb4 Disposition Summary: 05/09/22 01:14 Discharge Ordered Location: Home sp3 Condition: Stable sp3 Diagnosis - Pain in right leg sp3 Followup: sp3 - With: Private Physician - When: Upon discharge from the Emergency Department - Reason: Continuance of care Discharge Instructions: - Discharge Summary Sheet sp3 - Musculoskeletal Pain sp3 Forms: - Medication Reconciliation Form sp3 - Thank You Letter sp3 - Antibiotic Education sp3 - Prescription Opioid Use sp3 Signatures: Dispatcher [employer] Galindo Ruiz, CALE RN jb4 Alexis Richmond MD MD sp3 Teena Torres RN RN ll3
[2022-05-09] MEDS ORDERED: KETOROLAC 30 MG/ML INJ ONE (01:47)
[2022-05-09 02:20] VITALS: TEMP 98.1
[2022-05-09 02:21] VITALS: BP 148/64; O2SAT 94
--- NOTE | 2022-05-09 16:17 | RAD REPORT ---
EXAM DESCRIPTION: RAD - Pelvis - 05/09/2022 12:34 am CLINICAL HISTORY: PAIN TECHNIQUE: Frontal view of the pelvis. COMPARISON: No relevant prior studies available. FINDINGS: Bones/joints: Unremarkable. No acute fracture. No dislocation. Soft tissues: Unremarkable. Vasculature: Atherosclerotic disease. * A single impression for all exams can be found at the end of this report EXAM DESCRIPTION: XR Right Hip, 2 Views CLINICAL HISTORY: PAIN TECHNIQUE: Two views of the right hip. COMPARISON: No relevant prior studies available. FINDINGS: Bones/joints: Serpentine areas of sclerosis project over the distal femoral diaphysis as well as the adjacent soft tissues on the lateral view. No acute fracture. No dislocation. Soft tissues: See above. Vasculature: Atherosclerotic disease. * A single impression for all exams can be found at the end of this report IMPRESSION: XR Pelvis, 1 View: No acute injury. XR Right Hip, 2 Views: 1. No acute injury. 2. Serpentine areas of sclerosis project over the distal femoral diaphysis as well as the adjacent soft tissues on the lateral view. These may be related to soft tissue calcifications. The possibi lity of an intraosseous lesion cannot be entirely excluded on the basis of this examination. Electronically signed by: Myles Burger MD 05/09/2022 1:06 AM DIALYSIS TECH Due to temporary technical issues with the PACS/Fluency reporting system, reports are being signed by the in house radiologists without review as a courtesy to insure prompt reporting. The interpreting radiologist is fully responsible for the content of the report.
--- NOTE | 2022-05-09 16:35 | RAD REPORT ---
EXAM DESCRIPTION: RAD - Hip Right 1 View - 05/09/2022 12:34 am CLINICAL HISTORY: PAIN TECHNIQUE: Frontal view of the pelvis. COMPARISON: No relevant prior studies available. FINDINGS: Bones/joints: Unremarkable. No acute fracture. No dislocation. Soft tissues: Unremarkable. Vasculature: Atherosclerotic disease. * A single impression for all exams can be found at the end of this report EXAM DESCRIPTION: XR Right Hip, 2 Views CLINICAL HISTORY: PAIN TECHNIQUE: Two views of the right hip. COMPARISON: No relevant prior studies available. FINDINGS: Bones/joints: Serpentine areas of sclerosis project over the distal femoral diaphysis as well as the adjacent soft tissues on the lateral view. No acute fracture. No dislocation. Soft tissues: See above. Vasculature: Atherosclerotic disease. * A single impression for all exams can be found at the end of this report IMPRESSION: XR Pelvis, 1 View: No acute injury. XR Right Hip, 2 Views: 1. No acute injury. 2. Serpentine areas of sclerosis project over the distal femoral diaphysis as well as the adjacent soft tissues on the lateral view. These may be related to soft tissue calcifications. The possibi lity of an intraosseous lesion cannot be entirely excluded on the basis of this examination. Electronically signed by: Myles Burger MD 05/09/2022 1:06 AM MACHINE II COREMAKER Due to temporary technical issues with the PACS/Fluency reporting system, reports are being signed by the in house radiologists without review as a courtesy to insure prompt reporting. The interpreting radiologist is fully responsible for the content of the report.
--- NOTE | 2022-05-09 16:37 | RAD REPORT ---
EXAM DESCRIPTION: US - Extremity Venous Uni Ltd - 05/09/2022 12:50 am CLINICAL HISTORY: The patient is 86 years old and is Female; SWELLING Extremity Venous Uni Ltd TECHNIQUE: Real-time duplex ultrasound scan of the right lower extremity veins integrating B-mode tw o-dimensional vascular structure, Doppler spectral analysis, color flow Doppler imaging and compressi on. COMPARISON: No relevant prior studies available. FINDINGS: Deep veins: Unremarkable. No DVT in the visualized common femoral, femoral, or poplite al veins. The veins demonstrate normal color flow, are normally compressible where visualized, with normal phasic flow and/or augmentation response. Soft tissues: No acute findings. IMPRESSION: No evidence of DVT in the right lower extremity veins. Electronically signed by: Vineet Moulton MD 05/09/2022 1:03 AM BENEFITS CONSULTANT Due to temporary technical issues with the PACS/Fluency reporting system, reports are being signed by the in house radiologists without review as a courtesy to insure prompt reporting. The interpreting radiologist is fully responsible for the content of the report.
== END 2022-05-09 02:09 | disposition home or self-care (01) ==
LOC: ER 23:24
DX: M79.604 Pain in right leg (principal); Z95.0 Presence of cardiac pacemaker; Z95.818 Presence of other cardiac implants and grafts; Z88.5 Allergy status to narcotic agent; Z88.8 Allergy status to other drugs, medicaments and biological substances
CPT/HCPCS: 72170; 93971; 96372; 99283

== ENCOUNTER 2022-05-15 19:50 | Emergency (ER) | payer OTHER, MEDICARE ==
--- OUTSIDE RECORDS SUMMARY | 2022-05-15 19:54 | XMS REPORT | Continuity of Care Document ---
:1935 Author Organization [facility] t Address [address] [place] [address] Support Name Relationship Address Phone ALPESH WHITEHEAD CH [address] [facility] [place] [address] ALPESH WHITEHEAD CH [address] [place] [address] SUSIE WHITEHEAD Unavailable GALINA WHITEHEAD [facility] [address] [place] [address] L Farnaz Whitehead Self Unavailable [phone] JARRED SHIELDS MD Emergency Provider [address] [facility] [address] [place] [address] PEPITO MCKEON MD Primary Care Physician [address] [facility] [address] [place] [address] MD SAE ZIMMERMAN Emergency Provider [address] [place] [phone] MD HERMINIA PEDRO Emergency Provider [address] [phone] 83 [place] [phone] Care Team Providers Name Role Phone Pallavi Beyer MD Primary Care Physician RAKESH WEBSTER Attending Clinician Unavailable Lilia Attending Clinician Unavailable NIKOLAS TRUJILLO Attending Clinician Unavailable Kalia Montemayor MD Attending Clinician SHARIF Attending Clinician Unavailable HERMINIA PEDRO Attending Clinician Unavailable SAE ZIMMERMAN Attending Clinician Unavailable PALLAVI BEYER Attending Clinician Unavailable PALLAVI BEYER Attending Clinician Unavailable JARRED SHIELDS Attending Clinician Unavailable Lilia Admitting Clinician Unavailable SHARIF Admitting Clinician Unavailable PALLAVI BEYER Admitting Clinician Unavailable Payers Payer Name Policy Type Policy Number Effective Date Expiration Date Wander alba MEDICARE PART A AND [id number] 2002 B 00:00:00 [place]IC[place]: [id number] 2002 [employer] 00:00:00 [facility] [id number] 2020 OPTIONS (MEDICARE 00:00:00 SUPPLEMENT) [place]IC[place] A-[place]: [id number] 2002 [employer] - 00:00:00 [facility] - [facility] Problems Condition Condition Condition Status Onset Resolution Last Treating Co mments Source Name Details Category Date Date Treatment Clinician Date Acute Acute Problem Active [place] bronchitis Bronchitis 09-13 da 00:00: Medical 00 Group History of History of Disease Active M ethodi cardiovasc cardiovasc 11-06 ular ular 00:00: Hospita surgery surgery 00 l Pacemaker Pacemaker Disease Active Met hodi 11-06 st 00:00: Hospita 00 l CHF CHF Disease Active Methodi (congestiv (congestiv 11-06 st e heart e heart 00:00: Hospita failure) failure) 00 l History of 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 00:00: Ho spita [...] Propensi Active Method i Drug ty to 11-06 st Allergie adverse 00:00: Hospita s reaction 00 l s to drug Metformi Allergy Active [facility] Morphine Allergy Active [facility] Family History Family Member Diagnosis Comments Start Date Stop Date Source Natural father No Known Problems Met [facility] Natural mother No Known Problems Met [facility] Social History Social Habit Start Date Stop Date Quantity Comments Source Alcohol intake 2021-09-12 2021-09-12 Current Zoroastrianism 00:00:00 00:00:00 non-drinker of Hospital alcohol (finding) Tobacco use and 2018-08-24 2018-08-24 Smokeless tobacco Me thodist exposure 00:00:00 00:00:00 non-user Hospital Sex Assigned At [birth year] Zoroastrianism 00:00:00 00:00:00 Hospital Smoking Status Start Date Stop Date Source Tobacco smoking consumption unknown [facility] Never smoked tobacco Zoroastrianism ospital Medications Ordered Filled Start Stop Current [...] travoprost Yes 1[drp] QD 1 drop Met antoinettei (TRAVATAN-Z 4-[address] ) 0.004 % 13:05: Hospita 03 l calcium Yes 1{tbl} Q.5D Take 1 Method i carbonate-v 4-[address] itamin D3 13:05: mouth 2 Hospi ta 500 mg-200 03 (two) l unit per times a tablet day with meals. pantoprazol Yes 40mg QD Take 40 mg Methodi e 4-[address] (PROTONIX) 13:05: daily. Hospi ta 40 MG EC 03 l tablet DOCOSAHEXAN Yes Take by Met antoinettei OIC 4-[address] ACID/EPA 13:05: Hospita (FISH OIL 03 l ORAL) CINNAMON Yes Take by Method i BARK 4-[address] (CINNAMON 13:05: Hospita ORAL) 03 l CYANOCOBALA Yes Take by Met antoinettei MIN, -[address] VITAMIN 13:05: Hospita B-12, 03 l (VITAMIN B-12 ORAL) ferrous Yes 325mg QD Take 325 Metho di sulfate 325 4-[address] (65 FE) MG 13:05: mouth Hospit a tablet 03 daily with l breakfast. melatonin 3 Yes Take by Met hodi mg tablet 4-[address] 13:05: Hospita 03 l lidocaine 2018- Yes 1{patch Q24H Place 1 Me thodi (LIDODERM) 4-16 } patch on st 5 % 13:05: the skin Hospita 03 daily. l Remove & Discard patch within 12 hours or as directed by MD mcfarlandaminoleah Yes 500mg Q6H Take 500 M ethodi en 4-[address] (TYLENOL) 13:05: mouth Hospita 500 MG 03 every 6 l tablet (six) hours as needed for mild pain. torsemide Yes 10mg QD Take 10 mg Me thodi (DEMADEX) 4-[address] 10 MG 13:05: daily. Hospita tablet 03 l carvedilol 2019-0 Yes 6.25mg Q.5D Take 6.25 Methodi (COREG) 4-[address] 6.25 MG 13:05: mouth 2 Hospita tablet 03 (two) l times a day with meals. allopurinol 0 Yes 100mg QD Take 100 M ethodi (ZYLOPRIM) 4-[address] 100 MG 13:05: mouth Hospita tablet 03 daily. l atorvastati Yes 80mg QD Take 80 mg Methodi n (LIPITOR) 4-[address] 80 MG 13:05: daily. Hospita tablet 03 l aspirin 0 Yes 81mg QD Take 81 mg Meth [...] 0.004 % 13:05: Hospita 03 l calcium Yes 1{tbl} Q.5D Take 1 Method i [...] Hospita (FISH OIL 03 l ORAL) CINNAMON 0 Yes Take by Method i BARK 4-[address] (CINNAMON 13:05: Hospita ORAL) 03 l CYANOCOBALA 0 Yes Take by Met hodi MIN, 4-[address] VITAMIN 13:05: Hospita B-12, 03 l (VITAMIN B-12 ORAL) ferrous 2018-0 Yes 325mg QD Take 325 Metho di sulfate 325 4-[address] (65 FE) MG 13:05: mouth Hospit a tablet 03 daily with l breakfast. melatonin 3 Yes Take by Met hodi mg tablet 4-[address] 13:05: Hospita 03 l lidocaine 2018-0 Yes 1{patch Q24H Place 1 Me thodi (LIDODERM) 4-16 } patch on st 5 % 13:05: the skin Hospita 03 daily. l Remove & Discard patch within 12 hours or as directed by MD escalona 0 Yes 500mg Q6H Take 500 M ethodi en 4-[address] (TYLENOL) 13:05: mouth Hospita 500 MG 03 every 6 l tablet (six) hours as needed for mild pain. clopidogrel 0 Yes 75mg QD Take 75 mg Methodi (PLAVIX) 75 2-[address] mg tablet 14:35: daily. Hospit a 39 l lisinopril 2018-0 Yes 5mg QD Take 5 mg Me thodi (PRINIVIL,Z 2-[address] ESTRIL) 5 14:35: daily. Hospit a mg tablet 39 l clopidogrel 2018-0 Yes 75mg QD Take 75 mg Methodi (PLAVIX) 75 2-[address] mg tablet 14:35: daily. Hospit a 39 l lisinopril 2018-0 Yes 5mg QD Take 5 mg Me [...] hours by inhalation route. allopurinol allopurinol No allopurino [facility] 100 mg 100 mg l 100 mg da tablet TAKE tablet TAKE tablet Medical 1 TABLET BY 1 TABLET BY TAKE 1 Group MOUTH EVERY MOUTH EVERY TABLET BY DAY DAY MOUTH EVERY DAY amiodarone amiodarone No amiodarone [facility] 100 mg 100 mg 100 mg da tablet TAKE tablet TAKE tablet Medical 1 TABLET BY 1 TABLET BY TAKE 1 Group MOUTH EVERY MOUTH EVERY TABLET BY DAY DAY MOUTH EVERY DAY amoxicillin amoxicillin No 1 Q12H amoxicilli [facility] [id number] n 875 da mg-potassiu mg-potassiu mg-potassi Medical m m um Group clavulanate clavulanate clavulanat 125 mg 125 mg e 125 mg tablet Take tablet Take tablet 1 tablet 1 tablet Take 1 every 12 every 12 tablet hours by hours by every 12 oral route oral route hours by for 10 for 10 oral route days. days. for 10 days. atorvastati atorvastati No atorvastat [place] n 40 mg n 40 mg in 40 mg da tablet TAKE tablet TAKE tablet Medical 1 TABLET BY 1 TABLET BY TAKE 1 Group MOUTH EVERY MOUTH EVERY TABLET BY DAY DAY MOUTH EVERY DAY Calcium Calcium No Calcium [facility] with with with da Vitamin D Vitamin D Vitamin D Medical 600mg/ 600mg/ 600mg/ Group 1500mg 1500mg 1500mg carvedilol carvedilol No carvedilol [facility] 12.5 mg 12.5 mg 12.5 mg da tablet TAKE tablet TAKE tablet Medical 1 TABLET BY 1 TABLET BY TAKE 1 Group MOUTH TWICE MOUTH TWICE TABLET BY A DAY A DAY MOUTH TWICE A DAY clopidogrel clopidogrel No clopidogre [facility] 75 mg 75 mg l 75 mg da tablet TAKE tablet TAKE tablet Medical 1 TABLET BY 1 TABLET BY TAKE 1 Group MOUTH EVERY MOUTH EVERY TABLET BY DAY DAY MOUTH EVERY DAY epinastine epinastine No epinastine [facility] 0.05 % eye 0.05 % eye 0.05 % eye da drops drops drops Medical INSTILL 1 INSTILL 1 INSTILL 1 Group DROP INTO DROP INTO DROP INTO BOTH EYES BOTH EYES BOTH EYES EVERY DAY EVERY DAY EVERY DAY ipratropium ipratropium No 3mL Q4H ipratropiu [facility] [...] route as n route as on route needed for needed for as needed 10 days. 10 days. for 10 days. levothyroxi levothyroxi No levothyrox [facility] ne 112 mcg ne 112 mcg ine 112 da tablet TAKE tablet TAKE mcg tablet Medical 1 TABLET BY 1 TABLET BY TAKE 1 Group MOUTH EVERY MOUTH EVERY TABLET BY DAY DAY MOUTH EVERY DAY lisinopril lisinopril No lisinopril [facility] 10 mg 10 mg 10 mg da tablet TAKE tablet TAKE tablet Medical 1 TABLET BY 1 TABLET BY TAKE 1 Group MOUTH TWICE MOUTH TWICE TABLET BY A DAY A DAY MOUTH TWICE A DAY pantoprazol pantoprazol No pantoprazo [place] e 40 mg e 40 mg le 40 mg da tablet,ino tablet,ino tablet,del Medical yed release yed release ayed G roup TAKE 1 TAKE 1 release TABLET BY TABLET BY TAKE 1 MOUTH EVERY MOUTH EVERY TABLET BY DAY DAY MOUTH EVERY DAY spironolact spironolact No spironolac [place] one 25 one 25 tone 25 da mg-hydrochl mg-hydrochl mg-hydroch Medical orothiazide orothiazide lorothiazi Group 25 mg 25 mg de 25 mg tablet TAKE tablet TAKE tablet 1/2 TABLET 1/2 TABLET TAKE 1/2 BY MOUTH BY MOUTH TABLET BY DAILY DAILY MOUTH DAILY torsemide torsemide No torsemide [facility] 10 mg 10 mg 10 mg da tablet TAKE tablet TAKE tablet Medical 1 TABLET BY 1 TABLET BY TAKE 1 Group MOUTH EVERY MOUTH EVERY TABLET BY OTHER DAY OTHER DAY MOUTH EVERY OTHER DAY travoprost travoprost No travoprost [facility] 0.004 % eye 0.004 % eye 0.004 % da drops drops eye drops Medical INSTILL 1 INSTILL 1 INSTILL 1 Group DROP INTO DROP INTO DROP INTO BOTH EYES BOTH EYES BOTH EYES EVERYDAY AT EVERYDAY AT EVERYDAY BEDTIME BEDTIME AT BEDTIME Adult Low Adult Low No Adult Low [...] n 875 da mg-potassiu mg-potassiu mg-potassi Medical m m um Group clavulanate clavulanate clavulanat 125 mg 125 [...] Date Status Commen ts Source Name Name influenza, influenza, 2022-02-19 Completed [facility] unspecified unspecified 00:00:00 Medical Grou p formulation formulation COVID-19, mRNA, COVID-19, mRNA, 2021-03-11 Completed [facility] LNP-S, PF, 30 LNP-S, PF, 30 00:00:00 Medical Group mcg/0.3 mL dose mcg/0.3 mL dose (Waste Remedies-BioNTech) - (Waste Remedies-BioNTech) - ML ML COVID-19, mRNA, COVID-19, mRNA, 2020-07-07 Completed [facility] k[facility] LNP-S, PF, 30 LNP-S, PF, 30 00:00:00 Medical Group mcg/0.3 mL dose mcg/0.3 mL dose (Waste Remedies-BioNTech) - (VaultLogixBioNTech) - ML ML COVID-19 COVID-19 2020-06-30 Completed [facility] (SARS-COV-2) (SARS-COV-2) 00:00:00 Medical Gr oup vaccine, unspecified vaccine, unspecified COVID-19, mRNA, COVID-19, mRNA, 2020-06-09 Completed Wu k[facility] LNP-S, PF, 30 LNP-S, PF, 30 00:00:00 Medical Group mcg/0.3 mL dose mcg/0.3 mL dose (Pfizer-BioNTech) - (Pfizer-BioNTech) - ML ML Vital Signs Vital Name Observation Time Observation Value Comments Source BP Diastolic 2022-05-09 00:00:00 61 mm[Hg] [facility] BP Systolic 2022-05-09 00:00:00 125 mm[Hg] [facility] Body Weight 2022-05-09 00:00:00 2259 [oz_av] [facility] BP Diastolic 2021-05-14 00:00:00 75 mm[Hg] [facility] BP Systolic 2021-05-14 00:00:00 150 mm[Hg] [facility] Body Weight 2021-05-14 00:00:00 2364.8 [oz_av] [facility] BP Diastolic 2021-05-10 00:00:00 81 [...] Group Body height 2021-09-12 14:57:00 170.2 cm [facility] Body weight 2021-09-12 14:57:00 67.132 kg [facility] BMI 2021-09-12 14:57:00 23.18 kg/m2 [facility] Procedures Procedure Date / Time Performing Clinician Source Performed [place] ARTHROCENTESIS 2021-09-12 15:10:00 Kalia Montemayor [facility] ASPIR&/INJ MAJOR JT/BURSA W/O US [place] ARTHROCENTESIS 2021-09-02 14:50:00 Kalia Montemayor [facility] ASPIR&/INJ MAJOR JT/BURSA W/O US [place] ARTHROCENTESIS 2021-08-26 14:30:00 Kalia Montemayor [facility] ASPIR&/INJ MAJOR JT/BURSA W/O US XR, chest, 2 view 2021-05-10 00:00:00 [facility] on [facility] ical Group Plan of Care Planned Activity Planned Date Details Comments Source Diagnostic Test 2022-05-09 rapid influenza virus [facility] Medical Pending 00:00:00 A + B and SARS CoV + Group SARS CoV 2 Ag panel, IA, upper respiratory specimen [code = rapid influenza virus A + B and SARS CoV + SARS CoV 2 Ag panel, [place], upper respiratory specimen] Future Scheduled Test 2022-05-08 65+ PNEUMOCOCCAL [facility] 23:26:58 VACCINE (1 - PCV) [code = 65+ PNEUMOCOCCAL VACCINE (1 - PCV)] Future Scheduled Test 2022-05-08 SHINGLES VACCINES (1 [facility] 23:26:58 of 2) [code = SHINGLES VACCINES (1 of 2)] Future Scheduled Test 2022-05-08 COVID-19 VACCINE ([address] [place] [id number] 23:26:58 Booster) [code = COVID-19 VACCINE (4 - Booster)] Future Scheduled Test 2022-05-08 INFLUENZA VACCINE [facility] 23:26:58 [code = INFLUENZA VACCINE] Future Scheduled Test 2022-05-08 65+ PNEUMOCOCCAL [facility] 23:26:58 VACCINE (1 - PCV) [code = 65+ PNEUMOCOCCAL VACCINE (1 - PCV)] Future Scheduled Test 2022-05-08 SHINGLES VACCINES ([address] [place] [address] 23:26:58 of 2) [code = SHINGLES VACCINES (1 of 2)] Future Scheduled Test 2022-05-08 COVID-19 VACCINE ([address] [place] [address] 23:26:58 Booster) [code = COVID-19 VACCINE (4 - Booster)] Future Scheduled Test 2022-05-08 INFLUENZA VACCINE [facility] 23:26:58 [code = INFLUENZA VACCINE] Instructions [facility] Encounters Start End Encounter Admission Attending Care Care Encounter Source Date/Time Date/Time Type Type Clinicians Facility Department ID 2021-11-[address] [facility] [id number] [place] 11:42:14 [id number] [facility] 2021-09-[address] [facility] [id number] [place] 10:13:23 [id number] [facility] 2021-08-[address] [facility] [id number] [place] 15:15:57 [id number] [facility] 2022-05-09 2022-05-09 Outpatient ROBINA WEBSTER, [facility] [id number] [facility] 10:21:00 10:21:00 RAKESH -[id number] [facility] 2022-05-09 2022-05-09 Outpatient Darin_M [facility] MMG [id number] -[id number] [place] 00:00:00 00:00:00 1230 [facility] 2022-05-09 2022-05-09 Rakesh MMG [place] - [id number] M at[facility] 00:00:00 00:00:00 Kenzie caldera [place], Medical Medical [employer] FRY: [address] [facility] [address], [place] [address] , Ph. 2021-09-30 2021-09-30 Outpatient CASSANDRA, [facility] 7532 [facility] 10:13:00 23:59:00 NIKOLAS 2021-09-12 2021-09-12 Luis Alfredo Montemayor, 1.2.840.1 [id number] Methodi 10:10:00 10:47:26 Support Kalia Muñoz [id number] 3.430.2.7 Hospit a .3.392749 l .8 2021-09-12 2021-09-12 Luis Alfredo Montemayor 1.2.840.1 [id number] Methodi 10:10:00 10:47:26 Support Kalia Muñoz 77333.1.[address] 3.430.2.7 Hospit a .3.964430 l .8 2021-09-02 2021-09-02 Luis Alfredo Montemayor 1.2.840.1 [id number] Methodi 09:50:00 10:19:14 Support Kalia Muñoz [address]197.1.[address] 3.430.2.7 Hospit a .3.641170 l .8 2021-09-02 2021-09-02 Clinical Sim, 1.2.840.1 [id number] Methodi 09:50:00 10:19:14 Support Kalia Muñoz 31504.1.[address] 3.430.2.7 Hospit a .3.813632 l .8 2021-08-28 2021-08-28 Outpatient TRISHAHOLLI [facility] [id number] [place] 05:40:00 05:40:00 IE da [facility] 2021-08-26 2021-08-26 Office Sim, 1.2.840.1 [id number] Methodi 09:30:00 09:47:53 Visit Kalia Muñoz 21730.1.[address] 3.430.2.7 Hospit a .3.366578 l .8 2021-08-26 2021-08-26 Office Sim, 1.2.840.1 [id number] Methodi 09:30:00 09:47:53 Visit Kalia Muñoz 02324.1.[address] 3.430.2.7 Hospit a .3.153602 l .8 2021-07-31 2021-07-31 Travel 1.2.840.1 1.2.366.051 [id number] Methodi 00:00:00 00:00:[address] 3.430.2.7 0.2.7.3.698 Ho spita .3.758533 084.8 l .8 2021-07-31 2021-07-31 Travel 1.2.840.1 1.2.415.536 [id number] Methodi 00:00:00 00:00:[address] 3.430.2.7 0.2.7.3.698 Ho spita .3.339658 084.8 l .8 2021-07-01 2021-07-01 Outpatient BANNER, [facility] [id number] [facility] 09:08:00 23:59:00 NIKOLAS 2021-06-10 2021-06-10 Emergency ER WILLIS, [facility] [id number] [place] 09:50:00 13:18:00 HERMINIA -[id number] [facility] 2021-05-17 2021-05-17 Outpatient Darin_M [facility] MMG [id number] -[id number] [place] 04:08:00 04:08:00 0107 [facility] 2021-05-17 2021-05-17 Outpatient Jarekkins_M MMG MMG [id number] -2021 [place] 00:00:00 00:00:00 1229 [facility] 2021-05-14 2021-05-14 Rakesh Webster_M MMG [place] - [id number] 22 [place] 00:00:00 00:00:00 Kenzie Spencer 0104 verenice Webster, Medical Medical [employer] FRY: [address] [facility] [address], [place] [address] , Ph. 2021-05-10 2021-05-10 Outpatient UR DARIN, [facility] [id number] [place] 09:59:00 09:59:00 RAKESH -[id number] [facility] 2021-05-10 2021-05-10 Rakesh [place]_M MMG [place] - [id number] 21 [place] 00:00:00 00:00:00 Kenzie Spencer 1231 verenice Webster Medical Medical [employer] FRY: [address] [facility] [address], [place] [address] , Ph. 2021-05-08 2021-05-08 Emergency ER ERASMO, [facility] [id number] [place] 18:16:00 19:14:00 SAE [id number] [facility] 2021-04-15 2021-04-15 EXT MHH OP EXT MSRDP 1.2.840.114 1 [id number] [place] 00:00:00 00:00:00 LOCATION 350.1.13.58 H ealth 9.2.7.2.686 [id number] 2021-04-15 2021-04-15 EXT [facility] OP EXT MSRDP 1.2.840.114 1 [id number] [place] 00:00:00 00:00:00 LOCATION 350.1.13.58 [facility] 9.2.7.2.686 [id number] 2021-02-21 2021-02-21 Outpatient SIM, [facility] [id number] [place] 00:00:00 00:00:00 GEPP 919 Metho di 2021-02-11 2021-02-11 Outpatient SIM [facility] [id number] [place] 00:00:00 00:00:00 GEPP 787 [facility] 2021-02-04 2021-02-04 Outpatient SIM [facility] [id number] [place] 00:00:00 00:00:00 GEPP [address] 2020-09-15 2020-09-15 Outpatient Darin_Carlin [facility] [id number] [place] 12:25:00 12:25:00 0508 Medical Group 2020 2020 Rakesh Webster_M MM [place] - [id number] 21 [place] 00:00:00 00:00:00 Kenzie Spencer 0430 verenice Webster [facility] Medical [employer] FRY: [address] [facility] [address], [place] [address] , Ph. 2020-07-23 2020-07-23 Outpatient CASSANDRA, [facility] 7530 [facility] 09:42:00 23:59:00 NIKOLAS 2020-05-01 2020-05-01 Outpatient CASSANDRA, [facility] 7529 [facility] 10:35:00 23:59:00 NIKOLAS 2020-03-09 2020-03-11 Inpatient Shanti [facility]YER [facility] MED [id number] [facility] 16:40:00 11:00:00 PALLAVI tierney 2020-02-21 2020-02-21 Outpatient CASSANDRA, [facility] 7527 [facility] 09:11:00 23:59:00 NIKOLAS 2019-07-15 2019-07-15 Outpatient ROMAN BEYER [facility] [id number] [place] 07:19:00 07:19:00 PALLAVI -[id number] [facility] 2019-05-30 2019-05-30 Outpatient [facility] 7525 [facility] 09:38:00 09:38:00 2019-05-24 2019-05-24 [id number] 06:43:00 06:43:00 kelsy Torres [facility] l 2019-04-15 2019-04-15 Outpatient ROMAN BEYER [facility] [id number] [place] 09:05:00 09:05:00 PALLAVI -[id number] [facility] 2018-12-28 2018-12-28 Outpatient [facility] 7523 [facility] 09:46:00 09:46:00 2018-08-31 2018-08-31 Outpatient [facility] 7522 [facility] 10:56:00 10:56:00 2018-08-13 2018-08-13 Emergency ER ALYSON, [facility] [id number] [place] 09:43:00 12:58:00 JARRED -[id number] [facility] 2018-07-16 2018-07-16 Outpatient ROMAN BEYER [facility] [id number] [facility] 07:46:00 07:46:00 PALLAVI -[id number] [facility] Results Test Description Test Time Test Comments Results Result Comments Source Influenza virus A and B and SARS-CoV+SARS-CoV-2 (COVID -19) Ag 2022-05-09 09:48:28 panel - Upper respiratory specimen by Rapid immunoassay Test Item Value Reference Range Interpretation Comme nts RAPID SARS COV (test code = RAPID SARS COV) negative RAPID FLU A (test code = RAPID FLU A) negative RAPID FLU B (test code = RAPID FLU B) [facility] B and SARS CoV + SARS CoV 2 Ag panel, [place], upper respiratory [id number] 09:30:24 Test Item Value Reference Range Interpretation Comments RAPID SARS COV (test code = RAPID negative SARS COV) RAPID FLU A (test code = RAPID FLU negative A) RAPID FLU B (test code = RAPID FLU negative B) [facility] + B and SARS CoV + SARS CoV 2 Ag panel, IA, upper respiratory [id number] 09:30:24 Test Item Value Reference Range Interpretation Comments RAPID SARS COV (test code = RAPID negative SARS COV) RAPID FLU A (test code = RAPID FLU negative A) RAPID FLU B (test code = RAPID FLU negative B) [facility] Ag [Presence] in Respiratory specimen by Rapid [id number] 10:18:58 Test Item Value Reference Range Interpretation Comments SARS-CoV - 2 (test code = SARS-CoV - negative 2) [facility]
--- NOTE | 2022-05-15 21:01 | EDPHYS ---
Physician Documentation [facility] Name: Tami Whitehead Age: 86 yrs Sex: Female : 1935 Arrival Date: 05/15/2022 Time: 19:52 Bed IW2 Private MD: ED Physician Josefina Downs HPI: 05/15 20:55 This 86 yrs old Female presents to ER via Wheelchair with complaints of Large bruise on sd2 behind right knee, pt declines fall injury. 20:55 86-year-old female presents with chief complaint of bruising behind her right leg that sd2 they just noticed today. The patient has not had any trauma or injury to the leg. They do report that the patient had some pain to that leg in that area last and had a negative x-ray and ultrasound at that time. However, the bruise do not appear until today. The patient is currently on Plavix. She was seen at urgent care who recommended that she come to the ER for an ultrasound to rule out a blood clot. The patient denies any significant pain to the area and does not have any discomfort associated with the bruise. She does have some chronic swelling to both of her lower extremities. Historical: - Allergies: 20:46 metformin; tw5 20:46 Morphine; tw5 - PMHx: 20:46 Gout; Hypertensive disorder; Hypothyroidism; Hypercholesterolemia; tw5 - PSHx: 20:46 Heart Stents; pacemaker; tw5 - Immunization history:: Flu vaccine is up to date. - Social history:: Smoking status: Patient denies any tobacco usage or history of. ROS: 20:55 Constitutional: Negative for fever, chills, and weight loss, Eyes: Negative for injury, sd2 pain, redness, and discharge, Cardiovascular: Negative for chest pain, palpitations, and edema, Respiratory: Negative for shortness of breath, cough, wheezing. Abdomen/GI: Negative for abdominal pain, nausea, vomiting, diarrhea. MS/Extremity: Negative for injury and deformity, Skin: Negative for injury, rash, and positive for bruising Neuro: Negative for headache, numbness and tingling. Exam: 20:55 Constitutional: This is a well developed, well nourished patient who is awake, alert, sd2 and in no acute distress. Head/Face: Normocephalic, atraumatic. Eyes: EOMI, normal conjunctiva bilaterally Chest/axilla: Normal chest wall appearance and motion. Nontender with no deformity. Cardiovascular: Regular rate and rhythm with a normal S1 and S2. No gallops, murmurs, or rubs. 2+ distal pulses. Respiratory: Lungs have equal breath sounds bilaterally, clear to auscultation and percussion. No rales, rhonchi or wheezes noted. No increased work of breathing, no retractions or nasal flaring. Abdomen/GI: Soft, non-tender, with normal bowel sounds. No guarding or rebound. No evidence of tenderness throughout. Skin: Warm, dry with normal turgor. Large area of bruising noted to posterior thigh area. Does not appear to be acute with varying stages of coloring to the bruise and some resolution on the edges. No associated TTP. Chronic 1+ pitting edema to BLEs. No calf tenderness MS/ Extremity: Pulses equal, no cyanosis. Neurovascular intact. Full, normal range of motion. Psych: Awake, alert, with orientation to person, place and time. Behavior, mood, and affect are within normal limits. Vital Signs: 20:43 BP 152 / 67; Pulse 64; Resp 18; Temp 97.5; Pulse Ox 96% ; Weight 63.96 kg; Height 5 ft. tw5 4 in. (162.56 cm); Pain 0/10; 20:54 BP 163 / 81; Pulse 65; Resp 20; Pulse Ox 97% on R/A; tw5 20:43 Body Mass Index 24.20 (63.96 kg, 162.56 cm) tw5 MDM: 20:48 Patient medically screened. sd2 20:55 Differential Diagnosis ecchymosis, DVT, anemia, contusion among others. Data reviewed: sd2 vital signs, nurses notes. Counseling: I had a detailed discussion with the patient and/or guardian regarding: the historical points, exam findings, and any diagnostic results supporting the discharge/admit diagnosis, the need for outpatient follow up, to return to the emergency department if symptoms worsen or persist or if there are any questions or concerns that arise at home. Medical screen evaluation completed. EMTALA emergency medical condition absent. Administered Medications: No medications were administered Disposition Summary: 05/15/22 21:00 Discharge Ordered Location: Home sd2 Problem: new sd2 Symptoms: are unchanged sd2 Condition: Stable sd2 Diagnosis - Bruising to posterior right thigh sd2 Followup: sd2 - With: Private Physician - When: Tomorrow - Reason: Recheck today's complaints, Continuance of care, Re-evaluation by your physician Discharge Instructions: - Discharge Summary Sheet sd2 - Edema sd2 Forms: - Medication Reconciliation Form sd2 - Thank You Letter sd2 - Antibiotic Education sd2 - Prescription Opioid Use sd2 Signatures: Demetra Tapia tw5 Josefina Downs MD MD sd2
--- NOTE | 2022-05-15 21:01 | ER ---
Nurse's Notes [facility] Name: Tami Whitehead Age: 86 yrs Sex: Female : 1935 Arrival Date: 05/15/2022 Time: 19:52 Bed IW2 Private MD: Diagnosis: Bruising to posterior right thigh Presentation: 05/15 20:43 Chief complaint: Patient's son or daughter states: "She has a really deep bruise behind tw5 her knee. It doesn't hurt her. We went to the urgent care in [place] and they told us to come here. Ebola Screen: Patient negative for fever greater than or equal to 101.5 degrees Fahrenheit, and additional compatible Ebola Virus Disease symptoms Patient denies exposure to infectious person. Patient denies travel to an Ebola-affected area in the 21 days before illness onset. Initial Sepsis Screen: Does the patient meet any 2 criteria? No. Patient's initial sepsis screen is negative. Does the patient have a suspected source of infection? No. Patient's initial sepsis screen is negative. Risk Assessment: Do you want to hurt yourself or someone else? Patient reports no desire to harm self or others. 20:43 Method Of Arrival: Wheelchair tw5 20:46 Coronavirus screen: Vaccine status: Patient reports receiving the 2nd dose of the covid tw5 vaccine. [place]. Onset of symptoms is unknown. 20:46 Acuity: YADIRA 4 tw5 Triage Assessment: 20:46 General: Appears in no apparent distress. Behavior is calm, cooperative, appropriate tw5 for age. Pain: Denies pain. Historical: - Allergies: 20:46 metformin; tw5 20:46 Morphine; tw5 - PMHx: 20:46 Gout; Hypertensive disorder; Hypothyroidism; Hypercholesterolemia; tw5 - PSHx: 20:46 Heart Stents; pacemaker; tw5 - Immunization history:: Flu vaccine is up to date. - Social history:: Smoking status: Patient denies any tobacco usage or history of. Screenin:[address] [facility] ED Fall Risk Assessment (Adult) History of falling in the last 3 months, tw5 including since admission Yes- single mechanical fall (1 pt). Abuse screen: Denies threats or abuse. Denies injuries from another. Nutritional screening: No deficits noted. Tuberculosis screening: No symptoms or risk factors identified. Assessment: 20:53 General: Son states " I dont think we want to wait 3 hours for an ultrasound. We would tw5 rather just go to the doctor in the morning.". Vital Signs: 20:43 BP 152 / 67; Pulse 64; Resp 18; Temp 97.5; Pulse Ox 96% ; Weight 63.96 kg; Height 5 ft. tw5 4 in. (162.56 cm); Pain 0/10; 20:54 BP 163 / 81; Pulse 65; Resp 20; Pulse Ox 97% on R/A; tw5 20:43 Body Mass Index 24.20 (63.96 kg, 162.56 cm) tw5 ED Course: 19:52 Patient arrived in ED. jj6 20:07 Josefina Downs MD is Attending Physician. sd2 20:46 Triage completed. tw5 20:46 Arm band placed on. tw5 20:49 Patient notified of wait time. tw5 21:05 Patient has correct armband on for positive identification. tw5 21:05 No provider procedures requiring assistance completed. Patient did not have IV access tw5 during this emergency room visit. Administered Medications: No medications were administered Outcome: 21:00 Discharge ordered by . sd2 21:05 Discharged to home via wheelchair, with family. tw5 21:05 Condition: stable 21:05 Discharge instructions given to patient, family, Instructed on discharge instructions, follow up and referral plans. 21:06 Patient left the ED. tw5 Signatures: Demetra Tapia tw5 Lin Rodriguez jj6 Josefina Downs MD MD sd2 Corrections: (The following items were deleted from the chart) 20:53 20:46 Acuity: YADIRA 3 tw5 tw5
[2022-05-15 21:43] VITALS: TEMP 97.5
[2022-05-15 21:45] VITALS: BP 163/81; O2SAT 97
== END 2022-05-15 21:06 | disposition home or self-care (01) ==
LOC: ER 19:50
DX: S70.11XA Contusion of right thigh, initial encounter (principal)
CPT/HCPCS: 99281